=== PATIENT | female | born 1960 | race Caucasian/White ===

== ENCOUNTER 2016-07-11 13:25 | Emergency (ER) | payer OTHER ==
[~2016-07-11] VITALS: Ht 157.5 cm; Wt 70.3 kg
[2016-07-11 13:29] VITALS: BP 109/72
--- NOTE | 2016-07-11 13:46 | ED HAND/WRIST INJURY COMPLAINT ---
History of Present Illness General Chief Complaint: Fall Stated Complaint: FALL LFT WRIST PAIN Source: patient Exam Limitations: no limitations Allergies Coded Allergies: penicillin G (RASH 07/11/16) Triage Note: 56 Y/O FEMALE C/O PAIN TO L WRIST S/O FALL ON ICE THIS AM. +DEFORMITY. BRACELETS NOTED - REMOVED IN TRIAGE AND HELD BY DAUGHTER. SPLINT PLACED. MED WITH MOTRIN. XRAY ORDERED. Triage Nurses Notes Reviewed? yes HPI: this patient is a 56-year-old female who presented to the emergency department today for evaluation of left wrist pain. The patient reported that she was trying to clear some ice this morning when she fell backwards and her left wrist got tangled up. She reported 8 out of 10 left wrist pain worse with movement. She reported numbness and tingling in her hand. The patient denied any head strike or loss of consciousness. She denied any elbow or shoulder pain. (PRADEEP MORRISSEY PA-C) Vital Signs & Intake/Output Vital Signs & Intake/Output ED Intake and Output 07/12 0000 07/11 1200 Intake Total Output Total Balance Patient 155 lb Weight Reconcile Medications Oxycodone HCl/Acetaminophen (Percocet 5-325 MG Tablet) 5 MG-325 MG TABLET 1 TAB PO BID PRN pain (CRYSTAL BENTLEY DO) Past History Travel History Traveled to [place] past 21 day No Medical History Any Pertinent Medical History? see below for history Neurological: NONE EENT: NONE Cardiovascular: NONE Respiratory: NONE Gastrointestinal: NONE Hepatic: NONE Renal: NONE Musculoskeletal: NONE Psychiatric: NONE Endocrine: NONE Blood Disorders: NONE Cancer(s): NONE PROCESSING MGR/Reproductive: NONE Surgical History Surgical History: non-contributory Psychosocial History What is your primary language Dominican Tobacco Use: Quit >30 days ago Family History Hx Contributory? No (PRADEEP MORRISSEY PA-C) Review of Systems Review of Systems Constitutional: Reports: no symptoms. EENTM: Reports: no symptoms. Respiratory: Reports: no symptoms. Cardiovascular: Reports: no symptoms. GI: Reports: no symptoms. Musculoskeletal: Reports: see HPI. Skin: Reports: no symptoms. Neurological/Psychological: Reports: no symptoms. All Other Systems: Reviewed and Negative (PRADEEP MORRISSEY PA-C) Physical Exam Physical Exam Hand Left: radial deformity noted distally. No effusion, ecchymosis, or overlying erythema noted to the wrist. Full range of motion at the digits. Range of motion of the wrist limited due to pain. Capillary refill less than 2 seconds. Radial pulse 2+. Tenderness to palpation over the radial aspect of the dorsal wrist Hand Right: normal inspection, normal range of motion Comments: Well-developed well-nourished person in no acute distress HEENT: Head normocephalic, moist mucous membranes Neck: Supple, no lymphadenopathy Back: Normal gait Respiratory: No respiratory distress. Speaking sentences Neuro: Alert and oriented x3 Psych: Mood affect normal, normal memory normal judgment. Skin: Warm and dry, no rash on exposed skin (YUNI SAN,PRADEEP) Progress Differential Diagnosis: abscess, cellulitis, contusion, dislocation, fracture, sprain Plan of Care: Orders Procedure Date/time Status Durable Medical Equipment 07/11 1528 Active Diagnostic Imaging: Viewed by Me: Radiology Read. Discussed w/RAD: Radiology Read. Radiology Impression: PATIENT: MECHE WEI PRESENT AGE: 56 PATIENT ACCOUNT NO: [id number] : 56 LOCATION: [facility] ORDERING PHYSICIAN: CRYSTAL BENTLEY DO SERVICE DATE: 07/11/16 EXAM TYPE: RAD - XRY-WRIST COMPLETE-LEFT EXAMINATION: XR WRIST, LEFT CLINICAL INFORMATION: Pain an deformity after fall this morning. COMPARISON: None TECHNIQUE: Left wrist, 4 views FINDINGS: There is a predominantly transverse, impacted fracture of the distal radial metaepiphysis, and the fracture line appears to involve the distal radioulnar joint. There is apex anterior angulation with 14 degrees of dorsal tilt of the radial articular surface, 2-3 mm dorsal displacement of the distal radial fragment, and 0.2 cm of acquired ulna positive variance. The ulnar styloid fracture fragment is minimally displaced. Carpal bones are intact. The carpal joint spaces are maintained. There is soft tissue swelling around the wrist. IMPRESSION: Mildly displaced, impacted fracture of the distal radius resulting in 14 degrees of dorsal tilt of the radial articular surface and acquired ulna positive variance. The ulnar styloid fracture fragment is minimally displaced. DICTATED BY: VIJI SEN MD DATE/TIME DICTATED:07/11/161410 [employer] ENAMEL LABORER:CRISTAL DATE/TIME TRANSCRIBED:07/11/161410 CONFIDENTIAL, DO NOT COPY WITHOUT APPROPRIATE AUTHORIZATION. <Electronically signed in Other Vendor System> SIGNED BY: VIJI SEN MD 07/11/16 1420 Comments: 07/11/2016 2:54:24 PM: I spoke to Dr. Fowler, on-call orthopedic physician, who suggested putting this patient in a sugar tong splint, keeping the wrist as straight as possible. He reported that he will be possibly manually aligning the bone tomorrow when he sees her in the office. He will be scheduling an appointment for her to be seen tomorrow. I discussed the results of the x-ray with with the patient who is in agreement with the plan. (PRADEEP MORRISSEY PA-C) Departure Departure Disposition: HOME OR SELF CARE Condition: Stable Clinical Impression Primary Impression: Distal radius fracture, left Qualifiers: Encounter type: initial encounter Fracture type: closed Fracture morphology: unspecified fracture morphology Qualified Code: S52.502A - Unspecified fracture of the lower end of left radius, initial encounter for closed fracture Secondary Impressions: Fracture of ulnar styloid Qualifiers: Encounter type: initial encounter Fracture type: closed Fracture alignment: displaced Laterality: left Qualified Code: S52.612A - Displaced fracture of left ulna styloid process, initial encounter for closed fracture Referrals: GLORIA JOEL MD (PCP/Family) MESHA ADAM,AMADO Lenz Additional Instructions: Please attend your scheduled appointment with the orthopedic physician whose information has been provided to you in this packet tomorrow. Keep your wrist in the splint that was applied here in the emergency department. Use the sling provided to you for extra support. Pack ice over the area of the injury for 15- 20 minutes, 3-4 times a day. Elevate your wrist when possible. Return for any worsening symptoms or concerns. Departure Forms: Customer Survey General Discharge Information Prescriptions: Current Visit Scripts Oxycodone HCl/Acetaminophen (Percocet 5-325 MG Tablet) 1 TAB PO BID PRN pain #10 TAB (PRADEEP MORRISSEY PA-C) PA/KINDERGARTNER Co-Sign Statement Statement: ED Attending supervision documentation- [] I saw and evaluated the patient. I have also reviewed all the pertinent lab results and diagnostic results. I agree with the findings and the plan of care as documented in the PA's/KINDERGARTNER's documentation. [x] I have reviewed the ED Record and agree with the PA's/KINDERGARTNER's documentation. [] Additions or exceptions (if any) to the PAs/KINDERGARTNER's note and plan are summarized below: [] (CRYSTAL BENTLEY DO) Procedures Splinting Location: left wrist Manual Alignment Performed: No Hand-Made Type: orthoglass Splint: sugar-tong Splint Applied By: splint applied by me Pre-Proc Neuro Vasc Exam: normal Post-Proc Neuro Vasc Exam: normal Progress: pa student assistent in this procedure. patient tolerated the procedure well. (YUNI SAN,PRADEEP)
--- NOTE | 2016-07-11 14:20 | RADIOLOGY REPORT ---
EXAMINATION: XR WRIST, LEFT CLINICAL INFORMATION: Pain an deformity after fall this morning. COMPARISON: None TECHNIQUE: Left wrist, 4 views FINDINGS: There is a predominantly transverse, impacted fracture of the distal radial metaepiphysis, and the fracture line appears to involve the distal radioulnar joint. There is apex anterior angulation with 14 degrees of dorsal tilt of the radial articular surface, 2-3 mm dorsal displacement of the distal radial fragment, and 0.2 cm of acquired ulna positive variance. The ulnar styloid fracture fragment is minimally displaced. Carpal bones are intact. The carpal joint spaces are maintained. There is soft tissue swelling around the wrist. IMPRESSION: Mildly displaced, impacted fracture of the distal radius resulting in 14 degrees of dorsal tilt of the radial articular surface and acquired ulna positive variance. The ulnar styloid fracture fragment is minimally displaced.
[2016-07-11] MEDS ORDERED: PERCOCET 5-3251 EACH PO (14:59)
== END 2016-07-11 15:59 ==
LOC: ERH 13:25
DX: S52.502A Unspecified fracture of the lower end of left radius, initial encounter for closed fracture (principal); W19.XXXA Unspecified fall, initial encounter
CPT/HCPCS: 73110-LT